=== PATIENT | male | born 1945 | race Caucasian/White ===

== ENCOUNTER 2017-03-27 14:02 | Emergency (ER) | payer OTHER, BC ==
[~2017-03-27] VITALS: Ht 172.7 cm; Wt 97.5 kg
[~2017-03-27 14:02] MED LIST: ALLEGRA180 MG PO; AZILECT1 MG; AZILECT1 MG PO; CLEOCIN150 MG PO; CLONAZEPAM1 MG PO; DIOVAN160 MG PO; DULOXETINE HCL60 MG PO; EYE DROPS15 M1 OP; FLOVENT 11120 INHALA IH; LASIX20 MG PO; LEXAPRO10 MG PO; MELATONIN5 M1 PO; NUVIGIL50 MG; PRILOSEC20 MG PO; QUETIAPINE FUMA25 MG PO; RYTARY ER 23.71 EACH PO; STALEVO 75 TAB1 EACH PO; VICODIN,LORT1 TABLET PO; ZOCOR80 M1 PO
[2017-03-27 15:29] LABS: ADD MIUA? YES; BILIRUBIN NEGATIVE; BLOOD NEGATIVE; COLOR YELLOW ((YELLOW)); GLUCOSE (STRIP) NEGATIVE; KETONES 5; LEUKOCYTES SMALL; NITRITE POSITIVE; PROTEIN (STRIP) 30; SPECIFIC GRAVITY 1.026 (1.000-1.030)
[2017-03-27 15:33] LABS: HEMATOCRIT 41.6 % (38.0-50.0); MCH 30.9 PG (29.0-34.0); MCHC 34.1 G/DL (30.0-36.0); MCV 90.6 FL (86-99); PLATELET COUNT 221 K/uL (156-360); RBC DIS.WIDTH-CV 11.9 % (11.8-14.6); RBC DIS.WIDTH-SD 39.2 % (39-53); RED BLOOD COUNT 4.59 M/uL (4.00-5.50)
[2017-03-27 15:40] LABS: BACTERIA 1+ /HPF; EPITHELIAL CELLS RARE /HPF; HYALINE CASTS 0-5 /LPF; MUCUS TRACE /LPF; RED BLOOD CELLS 0-5 /HPF (0-5); UCUL ADDED? YES; WHITE BLOOD CELLS 20-30 /HPF (0-5)
[2017-03-27 15:42] LABS: CHLORIDE 104 mEq/L (99-109); POTASSIUM 4.1 mEq/L (3.7-5.4); SODIUM 138 mEq/L (136-147)
[2017-03-27 15:44] LABS: GLUCOSE 119 mg/dL (70-99)
[2017-03-27 15:46] LABS: ANION GAP 9 MEQ/L (2-14); TOTAL BILIRUBIN 0.4 mg/dL (0.0-1.0)
[2017-03-27 15:48] LABS: ALKALINE PHOSPHATASE 104 IU/L (3-129); GFR ESTIMATE (CALCULATED) 58 mL/min/
[2017-03-27 15:49] LABS: UREA NITROGEN (BUN) 22 mg/dL (9-23)
[2017-03-27 15:51] LABS: LIPASE 24 U/L (1.0-51.0)
[2017-03-27] MEDS ORDERED: CIPRO500 MG PO (17:41)
[2017-03-27] MEDS ORDERED: FLAGYL500 MG PO (17:41)
[2017-03-27 19:55] VITALS: BP 143/89
== END 2017-03-27 20:18 | disposition home or self-care (01) ==
LOC: EME 14:02
PROVIDERS: Physician Assistant Medical
DX: K57.92 Diverticulitis of intestine, part unspecified, without perforation or abscess without bleeding (principal); N39.0 Urinary tract infection, site not specified; I70.0 Atherosclerosis of aorta; Z85.820 Personal history of malignant melanoma of skin; J45.909 Unspecified asthma, uncomplicated; I10 Essential (primary) hypertension; G20 Parkinson's disease; Z87.891 Personal history of nicotine dependence
CPT/HCPCS: 74177; 80053; 81003; 83605; 83690; 85027; 87077; 87086; 87186; 99281; 99285; J7030

== ENCOUNTER 2017-03-29 13:34 | Emergency (ER) | payer OTHER, BC ==
[~2017-03-29] VITALS: Ht 172.7 cm; Wt 95.0 kg
[~2017-03-29 13:34] MED LIST changes: +CIPRO500 MG PO; +FLAGYL500 MG PO
[2017-03-29 15:29] LABS: ADD MIUA? YES; BILIRUBIN NEGATIVE; BLOOD NEGATIVE; COLOR YELLOW ((YELLOW)); GLUCOSE (STRIP) NEGATIVE; KETONES 5; LEUKOCYTES TRACE; NITRITE NEGATIVE; PROTEIN (STRIP) 30; SPECIFIC GRAVITY 1.015 (1.000-1.030)
[2017-03-29 15:35] LABS: EOSINOPHIL (%) 2.4 % (0-5); EOSINOPHIL COUNT 0.2 K/uL (0-0.3); HEMATOCRIT 39.8 % (38.0-50.0); IMMATURE GRANULOCYTE (%) 0.4 % (0.0-0.7); INSTRUMENT ABS NEUTROPHIL CT 3.9 K/uL; LYMPHOCYTE COUNT 2.1 K/uL (1.0-2.8); MCH 30.6 PG (29.0-34.0); MCHC 33.7 G/DL (30.0-36.0); MCV 90.9 FL (86-99); MEAN PLAT.VOLUME 9.7 uM^3 (9.0-12.4); MONOCYTE COUNT 0.5 K/uL (0-0.8); NEUTROPHIL (%) 58.1 % (45-76); NEUTROPHIL COUNT 3.9 K/uL (1.8-6.4); PLATELET COUNT 229 K/uL (156-360); RBC DIS.WIDTH-SD 39.6 % (39-53); RED BLOOD COUNT 4.38 M/uL (4.00-5.50); WHITE BLOOD COUNT 6.7 K/uL (4.1-10.2)
[2017-03-29 15:41] LABS: EPITHELIAL CELLS NONE SEEN /HPF; MUCUS NONE SEEN /LPF; RED BLOOD CELLS 0-5 /HPF (0-5); WHITE BLOOD CELLS 0-5 /HPF (0-5)
[2017-03-29 15:42] LABS: BACTERIA RARE /HPF; UCUL ADDED? NO
[2017-03-29] MEDS ORDERED: AUGMENTIN500 MG PO (16:42)
[2017-03-29 17:30] VITALS: BP 142/97
== END 2017-03-29 17:30 | disposition home or self-care (01) ==
LOC: EME 13:34
PROVIDERS: Emergency Medicine
DX: K57.92 Diverticulitis of intestine, part unspecified, without perforation or abscess without bleeding (principal); Z87.440 Personal history of urinary (tract) infections; G20 Parkinson's disease; I10 Essential (primary) hypertension; J45.909 Unspecified asthma, uncomplicated; Z85.820 Personal history of malignant melanoma of skin; Z87.891 Personal history of nicotine dependence
CPT/HCPCS: 81003; 85025; 99281; 99284

== ENCOUNTER 2017-11-17 19:21 | Inpatient (IN) | payer OTHER, BC ==
[~2017-11-17] VITALS: Ht 172.7 cm; Wt 95.0 kg
[~2017-11-17 19:21] MED LIST changes: +AUGMENTIN500 MG PO; -CLONAZEPAM1 MG PO; +KLONOPIN2 MG PO; +MELATONIN10 M1 PO; -MELATONIN5 M1 PO; +NEXIUM40 MG PO; -PRILOSEC20 MG PO; -RYTARY ER 23.71 EACH PO; +RYTARY ER 61.21 EACH PO
[2017-11-17 19:57] LABS: BASOPHIL (%) 0.5 % (0-1); EOSINOPHIL (%) 0.4 % (0-5); HEMATOCRIT 45.1 % (38.0-50.0); HEMOGLOBIN 15.4 G/DL (12.5-16.6); IMMATURE GRANULOCYTE (%) 0.1 % (0.0-0.7); LYMPHOCYTE (%) 20.5 % (15-42); LYMPHOCYTE COUNT 1.7 K/uL (1.0-2.8); MCH 30.8 PG (29.0-34.0); MCHC 34.1 G/DL (30.0-36.0); MCV 90.2 FL (86-99); MONOCYTE (%) 7.9 % (3-12); MONOCYTE COUNT 0.7 K/uL (0-0.8); NEUTROPHIL (%) 70.6 % (45-76); NEUTROPHIL COUNT 5.8 K/uL (1.8-6.4); PLATELET COUNT 230 K/uL (156-360); RBC DIS.WIDTH-CV 12.5 % (11.8-14.6); RBC DIS.WIDTH-SD 41.2 % (39-53); WHITE BLOOD COUNT 8.2 K/uL (4.1-10.2)
[2017-11-17 20:05] LABS: PTT 24.8 SEC (25-37)
[2017-11-17 20:08] LABS: CHLORIDE 108 mEq/L (99-109); POTASSIUM 3.7 mEq/L (3.7-5.4); SODIUM 140 mEq/L (136-147)
[2017-11-17 20:10] LABS: GLUCOSE 118 mg/dL (70-99)
[2017-11-17 20:14] LABS: CREATININE 1.3 mg/dL (0.6-1.3); GFR ESTIMATE (CALCULATED) 58 mL/min/ (58.99-99999)
[2017-11-17 20:15] LABS: UREA NITROGEN (BUN) 25 mg/dL (9-23)
[2017-11-17 20:22] LABS: TROP-I INTERPRETATION POSITIVE; TROPONIN-I 3.03 ng/mL (0.0-0.30)
[2017-11-17 21:30] LABS: AMYLASE 52 IU/L (1-118)
[2017-11-17 21:35] LABS: SERUM ETHYL ALCOHOL < 10 mg/dL
[2017-11-17 21:38] LABS: LIPASE 24 U/L (1.0-51.0)
[2017-11-17 21:44] LABS: TROP-I INTERPRETATION POSITIVE
[2017-11-17 21:46] LABS: TROPONIN-I 5.64 ng/mL (0.0-0.30)
[2017-11-17 22:03] LABS: APPEARANCE CLEAR ((CLEAR)); BILIRUBIN NEGATIVE; BLOOD NEGATIVE; COLOR YELLOW ((YELLOW)); GLUCOSE (STRIP) NEGATIVE; KETONES 5; LEUKOCYTES NEGATIVE; NITRITE NEGATIVE; PROTEIN (STRIP) NEGATIVE; SPECIFIC GRAVITY 1.059 (1.000-1.030); UCUL ADDED? NO
[2017-11-17 22:13] LABS: AMPHETAMINE NEGATIVE (500 ng/mL); BARBITURATES NEGATIVE (200 ng/mL); BENZODIAZEPINES NEGATIVE (150 ng/mL); BUPRENORPHINE NEGATIVE (10 ng/mL); COCAINE NEGATIVE (150 ng/mL); METHADONE NEGATIVE (200 ng/mL); METHAMPHETAMINE NEGATIVE (500 ng/mL); OPIATES (MORPHINE) PRESUMPTIVE POSITIVE (100 ng/mL); OXYCODONE NEGATIVE (100 ng/mL); PHENCYCLIDINE NEGATIVE (25 ng/mL); PROPOXYPHENE NEGATIVE (300 ng/mL); THC CANNABINOIDS NEGATIVE (50 ng/mL); TRICYCLIC ANTIDEPRESSANTS NEGATIVE (300 ng/mL)
[2017-11-18] VITALS (13 sets, daily range): BP systolic 101–147; BP diastolic 58–95
[2017-11-18] MEDS ORDERED: RYTARY ER 61.21 EACH PO ×4 (01:08)
[2017-11-18] MEDS ORDERED: VITAMIN B-121000 MC1 SL (01:09)
[2017-11-18] MEDS ORDERED: CRAN-MAX500 MG PO (01:09)
[2017-11-18] MEDS ORDERED: ARICEPT10 MG PO (01:11)
[2017-11-18] MEDS ORDERED: COLACE100 MG PO (01:11)
[2017-11-18] MEDS ORDERED: NYAMYC60 GM TP (01:12)
[2017-11-18] MEDS ORDERED: ZOCOR80 MG PO (01:12)
[2017-11-18] MEDS ORDERED: NAMENDA XR28 MG PO (01:12)
[2017-11-18] MEDS ORDERED: NUPLAZID17 MG PO (01:12)
[2017-11-18] MEDS ORDERED: XADAGO PO (01:13)
[2017-11-18] MEDS ORDERED: CARBIDOPA/LEVO1 EACH PO (01:14)
[2017-11-18] MEDS ORDERED: IPRATROPIUM BRO15 ML BOTH NARES (01:14)
[2017-11-18 06:28] LABS: BASOPHIL (%) 0.5 % (0-1); EOSINOPHIL (%) 0.8 % (0-5); EOSINOPHIL COUNT 0.1 K/uL (0-0.3); HEMATOCRIT 43.9 % (38.0-50.0); HEMOGLOBIN 14.5 G/DL (12.5-16.6); IMMATURE GRANULOCYTE (%) 0.1 % (0.0-0.7); LYMPHOCYTE (%) 27.2 % (15-42); LYMPHOCYTE COUNT 2.2 K/uL (1.0-2.8); MCH 29.7 PG (29.0-34.0); MCV 89.8 FL (86-99); MONOCYTE (%) 12.4 % (3-12); NEUTROPHIL COUNT 4.9 K/uL (1.8-6.4); PLATELET COUNT 222 K/uL (156-360); RBC DIS.WIDTH-CV 12.5 % (11.8-14.6); RBC DIS.WIDTH-SD 41.2 % (39-53); RED BLOOD COUNT 4.89 M/uL (4.00-5.50); WHITE BLOOD COUNT 8.2 K/uL (4.1-10.2)
[2017-11-18 06:41] LABS: TROP-I INTERPRETATION POSITIVE; TROPONIN-I 43.37 ng/mL (0.0-0.30)
[2017-11-18 06:46] LABS: CHLORIDE 103 MEQ/L (99-109); CREATININE 1.2 MG/DL (0.6-1.3); GFR ESTIMATE (CALCULATED) > 59 mL/min/ (58.99-99999); GLUCOSE 106 mg/dL (70-99); HDL CHOLESTEROL 47 MG/DL (Desirable>=40); LDL CHOLESTEROL 96 mg/dL (Desirable<100); NON-HDL CHOLESTEROL 131 mg/dL (Desirable<160); SODIUM 136 MEQ/L (136-147); TOTAL CHOLESTEROL 178 mg/dL (Desirable<200); TRIGLYCERIDES 174 MG/DL (Normal: <150); UREA NITROGEN (BUN) 19 mg/dL (9-23)
[2017-11-18 07:18] LABS: TOTAL CK 1263 IU/L (1-294)
[2017-11-18 07:23] LABS: CREATINE KINASE 1263 IU/L (1-294)
[2017-11-18 07:43] LABS: CK-MB 116.3 ng/mL (0.0-4.9); CKMB RELATIVE INDEX 9.2 (0.0-3.9)
[2017-11-18 10:01] LABS: HEMOGLOBIN A1c (GLYCOHEMOGLOB) 5.7 % (Below 5.7)
[2017-11-18 19:06] LABS: TROP-I INTERPRETATION POSITIVE; TROPONIN-I 16.64 ng/mL (0.0-0.30)
[2017-11-18 19:09] LABS: CREATINE KINASE 698 IU/L (1-294); TOTAL CK 698 IU/L (1-294)
[2017-11-18 20:34] LABS: CK-MB 41.5 ng/mL (0.0-4.9); CKMB RELATIVE INDEX 5.9 (0.0-3.9)
[2017-11-19 03:50] VITALS: BP 128/84
[2017-11-19 07:15] LABS: CHLORIDE 104 MEQ/L (99-109); CREATINE KINASE 422 IU/L (1-294); CREATININE 1.2 MG/DL (0.6-1.3); GFR ESTIMATE (CALCULATED) > 59 mL/min/ (58.99-99999); GLUCOSE 103 mg/dL (70-99); POTASSIUM 3.9 MEQ/L (3.7-5.4); SODIUM 138 MEQ/L (136-147); TOTAL CK 422 IU/L (1-294); UREA NITROGEN (BUN) 19 mg/dL (9-23)
[2017-11-19 07:16] VITALS: BP 128/80
[2017-11-19 07:20] LABS: TROP-I INTERPRETATION POSITIVE; TROPONIN-I 13.52 ng/mL (0.0-0.30)
[2017-11-19 07:43] LABS: CKMB RELATIVE INDEX 2.9 (0.0-3.9)
[2017-11-19 08:03] LABS: CK-MB 12.2 ng/mL (0.0-4.9)
[2017-11-19] MEDS ORDERED: BRILINTA90 MG PO (10:25)
[2017-11-19 11:17] VITALS: BP 132/86
[2017-11-19 14:19] LABS: HEMATOCRIT 44.7 % (38.0-50.0); MCH 30.4 PG (29.0-34.0); MCHC 33.6 G/DL (30.0-36.0); MCV 90.5 FL (86-99); PLATELET COUNT 214 K/uL (156-360); RBC DIS.WIDTH-CV 12.6 % (11.8-14.6); RBC DIS.WIDTH-SD 41.4 % (39-53); RED BLOOD COUNT 4.94 M/uL (4.00-5.50); WHITE BLOOD COUNT 7.9 K/uL (4.1-10.2)
== END 2017-11-19 16:00 | DRG 247 ==
LOC: EME → EDBD 19:21 → EME 19:21 → ENRESERV 21:12 → EME 21:56 → CATH 21:56 → ENRESERV 22:08 → 2SOUTH 23:09 → 4WEST 23:09 → 4EAST 23:09 → 4WEST 23:21 → ENRESERV 11-18 13:03 → 4EAST 11-18 16:02 → ENRESERV 11-19 10:29 → CANRESERV 11-19 10:29 → 4EAST 11-19 16:00 → ENPENDDIS 11-19 16:00
PROVIDERS: Emergency Medicine; Internal Medicine; Internal Medicine Interventional Cardiology
DX: I21.09 ST elevation (STEMI) myocardial infarction involving other coronary artery of anterior wall (principal); G24.8 Other dystonia; I25.5 Ischemic cardiomyopathy; E78.5 Hyperlipidemia, unspecified; G20 Parkinson's disease; G47.33 Obstructive sleep apnea (adult) (pediatric); I10 Essential (primary) hypertension; I25.10 Atherosclerotic heart disease of native coronary artery without angina pectoris; R79.1 Abnormal coagulation profile; I34.0 Nonrheumatic mitral (valve) insufficiency; Z85.820 Personal history of malignant melanoma of skin; Z87.891 Personal history of nicotine dependence; Z98.61 Coronary angioplasty status; Z82.0 Family history of epilepsy and other diseases of the nervous system; Z82.49 Family history of ischemic heart disease and other diseases of the circulatory system
CPT/HCPCS: 71045; 71275; 80048; 80061; 81003; 82150; 82550; 82550 91; 82553; 83036; 83690; 83735; 84484; 84999; 85025; 85027; 85347; 85379; 85610; 85730; 86850; 86900; 86901; 87641; 93005; 93306; 94799; 99281; 99285; C1725; C1769; C1874; C1887; G0480; J0153; J1644; J1650; J2250; J2270

== ENCOUNTER 2017-11-19 14:11 | Inpatient (IN) | payer OTHER, BC ==
[~2017-11-19 14:11] MED LIST changes: +ARICEPT10 MG PO; +BRILINTA90 MG PO; +CARBIDOPA/LEVO1 EACH PO; +COLACE100 MG PO; +CRAN-MAX500 MG PO; +IPRATROPIUM BRO15 ML BOTH NARES; +NAMENDA XR28 MG PO; +NUPLAZID17 MG PO; +NYAMYC60 GM TP; +VITAMIN B-121000 MC1 SL; +XADAGO PO; +ZOCOR80 MG PO
[2017-11-19 16:33] VITALS: BP 98/60
[2017-11-20 00:26] VITALS: BP 124/73
[2017-11-20 05:15] VITALS: BP 149/85
[2017-11-20 07:57] LABS: HEMATOCRIT 47.6 % (38.0-50.0); HEMOGLOBIN 15.5 G/DL (12.5-16.6); MCH 29.8 PG (29.0-34.0); MCHC 32.6 G/DL (30.0-36.0); MCV 91.5 FL (86-99); PLATELET COUNT 225 K/uL (156-360); RBC DIS.WIDTH-CV 12.6 % (11.8-14.6); RBC DIS.WIDTH-SD 42.6 % (39-53); WHITE BLOOD COUNT 7.7 K/uL (4.1-10.2)
[2017-11-20 08:29] LABS: ALBUMIN 3.5 G/DL (3.2-4.8); ALKALINE PHOSPHATASE 67 IU/L (3-129); ALT (GPT) 4 IU/L (3-49); AST (GOT) 26 IU/L (2-34); CHLORIDE 103 MEQ/L (99-109); CREATININE 1.4 MG/DL (0.6-1.3); GFR ESTIMATE (CALCULATED) 53 mL/min/ (58.99-99999); GLUCOSE 121 mg/dL (70-99); POTASSIUM 4.2 MEQ/L (3.7-5.4); SODIUM 139 MEQ/L (136-147); TOTAL BILIRUBIN 0.6 MG/DL (0.0-1.0); TOTAL PROTEIN 5.7 G/DL (6.4-8.3); UREA NITROGEN (BUN) 22 mg/dL (9-23)
[2017-11-20 15:12] VITALS: BP 109/68
[2017-11-21 05:56] VITALS: BP 133/80
[2017-11-21 07:42] VITALS: BP 138/86
[2017-11-21 16:02] VITALS: BP 98/54
[2017-11-22 05:45] VITALS: BP 124/75
[2017-11-22 07:59] VITALS: BP 103/67
[2017-11-22 15:33] VITALS: BP 155/95
[2017-11-22 15:50] VITALS: BP 110/70
[2017-11-23 05:34] VITALS: BP 162/84
[2017-11-23 05:59] LABS: CHLORIDE 105 MEQ/L (99-109); CREATININE 1.4 MG/DL (0.6-1.3); GFR ESTIMATE (CALCULATED) 53 mL/min/ (58.99-99999); GLUCOSE 100 mg/dL (70-99); POTASSIUM 3.9 MEQ/L (3.7-5.4); SODIUM 139 MEQ/L (136-147); UREA NITROGEN (BUN) 24 mg/dL (9-23)
[2017-11-23 15:35] VITALS: BP 104/59
[2017-11-24 06:09] VITALS: BP 121/81
[2017-11-24 15:07] VITALS: BP 137/81
[2017-11-25 05:47] VITALS: BP 126/82
[2017-11-25 15:36] VITALS: BP 120/68
[2017-11-26 07:06] VITALS: BP 113/70
[2017-11-26 15:23] VITALS: BP 125/67
[2017-11-26 17:10] LABS: CHLORIDE 104 MEQ/L (99-109); CREATININE 1.4 MG/DL (0.6-1.3); GFR ESTIMATE (CALCULATED) 53 mL/min/ (58.99-99999); GLUCOSE 89 mg/dL (70-99); POTASSIUM 4.2 MEQ/L (3.7-5.4); SODIUM 137 MEQ/L (136-147); UREA NITROGEN (BUN) 25 mg/dL (9-23)
[2017-11-27 05:49] VITALS: BP 123/78
[2017-11-27] MEDS ORDERED: NITROSTAT0.4 MG SL (11:32)
[2017-11-27] MEDS ORDERED: ATORVASTATIN CA40 MG PO (11:32)
[2017-11-27] MEDS ORDERED: AMLODIPINE BESYL5 MG PO (11:32)
[2017-11-27] MEDS ORDERED: ASPIR-LOW81 MG PO (11:32)
[2017-11-27] MEDS ORDERED: BRILINTA90 MG PO (11:32)
[2017-11-27] MEDS ORDERED: LOPRESSOR25 MG PO (11:32)
== END 2017-11-27 13:55 | DRG 945 ==
LOC: 3WEST 14:11
PROVIDERS: Hospitalist; Physical Medicine & Rehabilitation Pain Medicine
PROC: F07M0ZZ Range of Motion and Joint Mobility Treatment of Musculoskeletal System - Whole Body (ICD-10-PCS; principal; 2017-11-19)
DX: R53.1 Weakness (principal); I22.0 Subsequent ST elevation (STEMI) myocardial infarction of anterior wall; J44.1 Chronic obstructive pulmonary disease with (acute) exacerbation; F33.9 Major depressive disorder, recurrent, unspecified; G30.9 Alzheimer's disease, unspecified; F02.80 Dementia in other diseases classified elsewhere, unspecified severity, without behavioral disturbance, psychotic disturbance, mood disturbance, and anxiety; E78.5 Hyperlipidemia, unspecified; E83.51 Hypocalcemia; G20 Parkinson's disease; G47.00 Insomnia, unspecified; I11.9 Hypertensive heart disease without heart failure; I25.10 Atherosclerotic heart disease of native coronary artery without angina pectoris; I25.5 Ischemic cardiomyopathy; K21.9 Gastro-esophageal reflux disease without esophagitis; M19.90 Unspecified osteoarthritis, unspecified site; R13.10 Dysphagia, unspecified; F41.9 Anxiety disorder, unspecified; G43.909 Migraine, unspecified, not intractable, without status migrainosus; J30.2 Other seasonal allergic rhinitis; R29.6 Repeated falls; Z85.820 Personal history of malignant melanoma of skin; Z87.440 Personal history of urinary (tract) infections; Z87.891 Personal history of nicotine dependence; Z91.81 History of falling; Z95.5 Presence of coronary angioplasty implant and graft
CPT/HCPCS: 74230; 80048; 80053; 85027; 92611 GN; 94640; 94660; 94667; 94668; 97110 GO; 97530 GP; 99202; G0515 GO; J1650

== ENCOUNTER 2017-12-20 12:19 | Observation (INO) | payer OTHER, BC ==
[~2017-12-20] VITALS: Ht 167.6 cm; Wt 87.0 kg
[~2017-12-20 12:19] MED LIST changes: +AMLODIPINE BESYL5 MG PO; +ASPIR-LOW81 MG PO; +ATORVASTATIN CA40 MG PO; +LOPRESSOR25 MG PO; +NITROSTAT0.4 MG SL
[2017-12-20 12:40] LABS: HEMATOCRIT 43.1 % (38.0-50.0); HEMOGLOBIN 14.4 G/DL (12.5-16.6); MCH 30.8 PG (29.0-34.0); MCHC 33.4 G/DL (30.0-36.0); MCV 92.3 FL (86-99); PLATELET COUNT 192 K/uL (156-360); RBC DIS.WIDTH-CV 13.2 % (11.8-14.6); RBC DIS.WIDTH-SD 44.7 % (39-53); RED BLOOD COUNT 4.67 M/uL (4.00-5.50); WHITE BLOOD COUNT 5.6 K/uL (4.1-10.2)
[2017-12-20 12:57] LABS: CHLORIDE 109 mEq/L (99-109); POTASSIUM 4.4 mEq/L (3.7-5.4); SODIUM 146 mEq/L (136-147)
[2017-12-20 12:58] LABS: GLUCOSE 114 mg/dL (70-99)
[2017-12-20 13:02] LABS: CREATININE 1.4 mg/dL (0.6-1.3); GFR ESTIMATE (CALCULATED) 53 mL/min/ (58.99-99999)
[2017-12-20 13:03] LABS: UREA NITROGEN (BUN) 27 mg/dL (9-23)
[2017-12-20 13:09] LABS: TROP-I INTERPRETATION NEGATIVE; TROPONIN-I 0.01 ng/mL (0.0-0.30)
[2017-12-20] MEDS ORDERED: DIOVAN160 MG PO (15:14)
[2017-12-20] MEDS ORDERED: LO-DOSE ASPIRIN81 M1 PO (15:15)
[2017-12-20] MEDS ORDERED: LIPITOR40 MG PO (15:16)
[2017-12-20] MEDS ORDERED: RYTARY ER 61.21 EACH PO (15:17)
[2017-12-20] MEDS ORDERED: MELATONIN5 M1 PO (15:21)
[2017-12-20] MEDS ORDERED: LOPRESSOR25 MG PO ×2 (15:22→19:20)
[2017-12-20] MEDS ORDERED: BRILINTA90 MG PO (15:24)
[2017-12-20 16:44] VITALS: BP 152/85
[2017-12-20 18:56] LABS: TROP-I INTERPRETATION NEGATIVE; TROPONIN-I 0.01 ng/mL (0.0-0.30)
[2017-12-20 19:00] VITALS: BP 143/87
[2017-12-20 23:31] VITALS: BP 164/92
[2017-12-21 01:10] LABS: TROP-I INTERPRETATION NEGATIVE; TROPONIN-I 0.01 ng/mL (0.0-0.30)
[2017-12-21 04:01] VITALS: BP 134/78
[2017-12-21 06:03] LABS: HEMATOCRIT 41.8 % (38.0-50.0); HEMOGLOBIN 13.8 G/DL (12.5-16.6); MCH 30.4 PG (29.0-34.0); MCV 92.1 FL (86-99); PLATELET COUNT 202 K/uL (156-360); RBC DIS.WIDTH-CV 13.2 % (11.8-14.6); RBC DIS.WIDTH-SD 43.9 % (39-53); RED BLOOD COUNT 4.54 M/uL (4.00-5.50); WHITE BLOOD COUNT 6.1 K/uL (4.1-10.2)
[2017-12-21 06:14] LABS: CHLORIDE 108 MEQ/L (99-109); CREATININE 1.4 MG/DL (0.6-1.3); GFR ESTIMATE (CALCULATED) 53 mL/min/ (58.99-99999); GLUCOSE 99 mg/dL (70-99); POTASSIUM 3.9 MEQ/L (3.7-5.4); SODIUM 142 MEQ/L (136-147); UREA NITROGEN (BUN) 26 mg/dL (9-23)
[2017-12-21 08:46] VITALS: BP 121/77
[2017-12-21 11:39] VITALS: BP 132/85
== END 2017-12-21 14:45 | disposition home or self-care (01) ==
LOC: EME 12:19 → EDOF 14:48 → ENRESERV 14:58 → 4SOUTH 16:25
PROVIDERS: Physician Assistant Medical
DX: R07.2 Precordial pain (principal); G20 Parkinson's disease; Z96.89 Presence of other specified functional implants; R09.02 Hypoxemia; K21.9 Gastro-esophageal reflux disease without esophagitis; E78.5 Hyperlipidemia, unspecified; I10 Essential (primary) hypertension; Z85.820 Personal history of malignant melanoma of skin; I25.10 Atherosclerotic heart disease of native coronary artery without angina pectoris; I25.2 Old myocardial infarction; Z95.5 Presence of coronary angioplasty implant and graft; M19.90 Unspecified osteoarthritis, unspecified site; K57.90 Diverticulosis of intestine, part unspecified, without perforation or abscess without bleeding; Z87.891 Personal history of nicotine dependence; Z79.82 Long term (current) use of aspirin
CPT/HCPCS: 71046; 80048; 84484; 85027; 93005; 94660; 99281; 99285; G0378; J1650